=== PATIENT | male | born 1960 | race Hispanic/Latino ===

== ENCOUNTER 2020-04-15 13:31 | Emergency (ER) | payer BC ==
[2020-04-15] MEDS ORDERED: Lidocaine 1% w/Epinephrine 1:100K 20 ML VIAL ONE (14:16)
== END 2020-04-15 14:55 | disposition home or self-care (01) ==
LOC: ERS 13:31
DX: L02.11 Cutaneous abscess of neck (principal); G40.909 Epilepsy, unspecified, not intractable, without status epilepticus; Z79.899 Other long term (current) drug therapy
CPT/HCPCS: 10060

== ENCOUNTER 2020-04-17 08:57 | Emergency (ER) | payer BC | END 2020-04-17 09:34 | disposition home or self-care (01) | LOC: ERS 08:57 | DX: Z48.817 Encounter for surgical aftercare following surgery on the skin and subcutaneous tissue (principal); I10 Essential (primary) hypertension; G40.909 Epilepsy, unspecified, not intractable, without status epilepticus; Z79.899 Other long term (current) drug therapy | CPT/HCPCS: 99283 ==